=== PATIENT | female | born 1980 | race Caucasian/White ===

== ENCOUNTER → 2016-06-18 | Outpatient (CLI) | payer BC | LOC: GMA 14:21 | PROVIDERS: ATTEND Nurse Practitioner Family | DX: N39.0 Urinary tract infection, site not specified (principal) ==

== ENCOUNTER → 2018-08-11 | Outpatient (CLI) | payer BC ==
--- NOTE | 2018-08-12 09:41 | US ---
EXAM DESCRIPTION: Pelvis Transvaginal: Ultrasound. CLINICAL HISTORY: 37 years Female R19.09 COMPARISON: Ultrasound pelvis 04/03/2009. TECHNIQUE: Transpelvic scanning through the urine filled bladder; endovaginal scanning: Jackson-scale and Doppler modes. FINDINGS: Uterus 7.5 x 3.9 x 3.4 cm 49.9 ml. Endometrial thickness is 2.7 mm. Myometrium appears heterogeneous. Uterus retroflexed. Cervix unremarkable. Cul-de-sac contains no fluid. Right ovary 3.1 x 1.6 x 1.1 cm 2.9 mL.. Normal waveform and color Doppler vascularity. No follicles or cysts. No adnexal mass or free fluid. Left ovary 2.8 x 1.1 x 1.0 cm 1.7 mL.. Normal waveform and color Doppler vascularity. No follicles or cysts. No adnexal mass or free fluid. IMPRESSION: 1. Uterus normal position and size. No endometrial thickening. No fluid in the cul-de-sac. 2. Bilateral ovaries normal size and vascularity with no adnexal mass or fluid. Electronically signed by: Karson Borja MD 08/12/2018 9:38 AM CDT
== END ==
LOC: US 09:25
PROVIDERS: ATTEND Physician Assistant
DX: R19.09 Other intra-abdominal and pelvic swelling, mass and lump (principal)

== ENCOUNTER → 2019-11-07 | Outpatient (CLI) | payer BC | LOC: GMAM 11:18 | PROVIDERS: ATTEND Family Medicine | DX: E03.9 Hypothyroidism, unspecified (principal); E78.2 Mixed hyperlipidemia ==

== ENCOUNTER → 2020-04-24 | Outpatient (CLI) | payer BC | LOC: GMAM 10:25 | PROVIDERS: ATTEND Family Medicine | DX: M25.50 Pain in unspecified joint (principal) ==

== ENCOUNTER 2020-06-08 11:21 | Emergency (ER) | payer BC ==
--- NOTE | 2020-06-08 11:57 | ED.PDOC ---
History of Present Illness - General Chief Complaint: Respiratory Problem Stated Complaint: shortness of breath Time Seen by Provider: 06/08/20 11:45 Source: patient Additional Information: The patient is a 39 year old with history significant for asthma and diabetes who presents to the ED with cough and shortness of breath. States that for the past week she has had difficulty with exertional dyspnea, cough and fevers. She tested positive at the clinic today and was noted to have oxygen saturation of 92% so she was given 4mg oral decadron and referred to the Emergency Department. No other complaints at this time. - History of Present Illness Allergies/Adverse Reactions: Allergies NO KNOWN ALLERGY Allergy (Verified 06/08/20 11:49) Home Medications: Ambulatory Orders Azithromycin Tab [Zithromax Tab] 250 mg PO DAILY #6 tab 06/08/20 Benzonatate Perles [Tessalon Perles] 100 mg PO TID #20 cap 06/08/20 Dextromethorphan-Guaifenesin [Guaifenesin Dm] 10 ml PO Q4HR #120 syp 06/08/20 Metformin HCl 06/08/20 Singulair 06/08/20 Zyrtec 06/08/20 predniSONE 40 mg PO DAILY #14 tab 06/08/20 Review of Systems - Review of Systems Constitutional: States: chills, fever EENTM: States: no symptoms reported Respiratory: States: cough, short of breath, wheezing Cardiology: States: chest pain. Denies: edema, palpitations Gastrointestinal/Abdominal: Denies: abdominal pain, diarrhea, nausea, vomiting Genitourinary: States: no symptoms reported, dysuria Musculoskeletal: States: no symptoms reported Skin: States: no symptoms reported Neurological: States: no symptoms reported Endocrine: States: no symptoms reported Hematologic/Lymphatic: States: no symptoms reported All other Systems: Reviewed and Negative Past Medical History (General) - Patient Medical History Hx Stroke: No Hx Asthma: Yes Hx Congestive Heart Failure: No Hx Diabetes: Yes Surgical History: no surgical history - Vaccination History Hx Influenza Vaccination: No - Social History Hx Tobacco Use: No - Female History Patient is a Female of Child Bearing Age (10 -59 yrs old): Yes Family Medical History - Family History Mother Family History: Unknown Living Status: Unknown Physical Exam - Physical Exam General Appearance: Anxious, Ill Appearing ENT Exam: normal ENT inspection Neck: non-tender, full range of motion, supple, normal inspection, trachea midline Respiratory: chest non-tender, other - tachypneic Cardiovascular/Chest: normal peripheral pulses, no edema, no gallop, no JVD, no murmur, tachycardia Gastrointestinal/Abdominal: non tender, soft Extremity: normal range of motion, non-tender, normal inspection, no pedal edema Neurologic: no motor/sensory deficits, alert, normal mood/affect, oriented x 3 Skin Exam: normal color, warm/dry Progress - Progress Progress: 06/08/20 14:19 Patient reassessed, workup as above. She has borderline oxygen levels at 92% without increased work of breathing. Will treat with steroids, antibiotics. Discussed home symptomatic management and she will follow up with her PCP. Discussed CT findings, will follow up as outpatient for dedicated imaging. Return to the Emergency Department as needed. - Results/Orders Results/Orders: 06/08/20 11:45 Pulse Ox, Continuous Monitoring STAT Laboratory Results - last 24 hr 06/08/20 06/08/20 06/08/20 12:00 12:00 12:00 WBC 4.9 RBC 4.82 Hgb 13.9 Hct 41.3 MCV 85.6 MCH 28.8 MCHC 33.6 RDW 13.6 Plt Count 274 MPV 7.5 Absolute Neuts (auto) 4.20 Absolute Lymphs (auto) 0.60 L Absolute Monos (auto) 0.10 L Absolute Eos (auto) 0.00 Absolute Basos (auto) 0.00 Neutrophils % 85.7 H Lymphocytes % 11.6 L Monocytes % 2.3 Eosinophils % 0.1 L Basophils % 0.3 PTT (SP) 28.3 D-Dimer, Quantitative 441.0 H LD Total Creatine Kinase Troponin I < 0.02 C-Reactive Protein B-Natriuretic Peptide Serum HCG, Qual 06/08/20 06/08/20 12:00 12:07 WBC RBC Hgb Hct MCV MCH MCHC RDW Plt Count MPV Absolute Neuts (auto) Absolute Lymphs (auto) Absolute Monos (auto) Absolute Eos (auto) Absolute Basos (auto) Neutrophils % Lymphocytes % Monocytes % Eosinophils % Basophils % PTT (SP) D-Dimer, Quantitative LD Total 185 H Creatine Kinase 36 Troponin I C-Reactive Protein 7.8 H B-Natriuretic Peptide < 15.0 Serum HCG, Qual Negative CTA Chest: IMPRESSION: No pulmonary embolus. Bilateral pneumonia. COVID-19 could have this appearance. Geographic fatty infiltration of the liver with a partially visualized 4.8 cm solid mass in the right hepatic lobe. Neoplasm not excluded, given patient's age benign etiology is considered more likely such as adenoma or FNH. Hepatic protocol CT or MRI with multiphase gadolinium contrast should be considered for further evaluation, this is not emergent. Medical Decision Making Patient with URI symptoms and COVID+ referred from clinic. Evaluation as above. She has pneumonia without evidence of blood clots. Oxygen is borderline at 90- 92%. Given history of asthma, started on steroids and antibiotics. Discussed home symptomatic management including alternating doses of tylenol and motrin. Discussed Liver findings on CT scan, she will follow up with her PCP for dedicated imaging. Home care instructions and return indications reviewed. Departure - Departure Clinical Impression: COVID-19 Time of Disposition: 14:20 Disposition: Discharge to Home or Self Care Condition: Good Departure Forms: ED Discharge - Pt. Copy, Patient Portal Self Enrollment Instructions: Community-Acquired Pneumonia, Adult (DC) Diet: resume usual diet, other Activity: increase activity as tolerated Referrals: Kade Herrmann MD [Primary Care Provider] - 1-2 Weeks Prescriptions: Dextromethorphan-Guaifenesin [Guaifenesin Dm] 10 ml PO Q4HR #120 syp predniSONE 40 mg PO DAILY #14 tab Benzonatate Perles [Tessalon Perles] 100 mg PO TID #20 cap Azithromycin Tab [Zithromax Tab] 250 mg PO DAILY #6 tab Home Medications: Ambulatory Orders Azithromycin Tab [Zithromax Tab] 250 mg PO DAILY #6 tab 06/08/20 Benzonatate Perles [Tessalon Perles] 100 mg PO TID #20 cap 06/08/20 Dextromethorphan-Guaifenesin [Guaifenesin Dm] 10 ml PO Q4HR #120 syp 06/08/20 Metformin HCl 06/08/20 Singulair 06/08/20 Zyrtec 06/08/20 predniSONE 40 mg PO DAILY #14 tab 06/08/20
--- NOTE | 2020-06-08 12:29 | RAD ---
EXAMINATION: Chest x-ray one view. INDICATION: Shortness of breath. Covid COMPARISON: None TECHNIQUE: Frontal radiograph chest. FINDINGS: The cardiac silhouette is normal in size. Airspace opacities are present in the upper lung zones as well as the left midlung zone. Findings are suspicious for infectious process. There is no pneumothorax. IMPRESSION: Airspace opacities in both lungs, worse on the left. Findings are suspicious for provided history of Covid Electronically signed by: Sourav Josue MD 06/08/2020 12:27 PM [facility]
--- NOTE | 2020-06-08 13:50 | CT ---
EXAM DESCRIPTION: CTA Chest CLINICAL HISTORY: COVID+, elevated d-dimer, concern for PE COMPARISON: None available TECHNIQUE: Chest CTA was performed with IV contrast including MIP and/or Three-D reconstructed images. This exam was performed according to our departmental dose-optimization program, which includes automated exposure control, adjustment of the mA and/or kV according to patient size and/or use of iterative reconstruction technique. FINDINGS: Limited sensitivity for detection of peripheral pulmonary embolus due to delayed timing of imaging relative to contrast bolus administration, no central pulmonary was. No pleural or pericardial effusion. No thoracic aortic aneurysm or dissection. No adenopathy. Soft tissue density in the anterior mediastinum likely represents residual thymus. Central airways are clear. Irregular areas of groundglass and more confluent density scattered throughout both lungs, most apparent in the upper lobes. Geographic fatty infiltration of the liver. Partially visualized round 4.8 cm mass in the right hepatic lobe. Visualized portions of the upper abdomen are otherwise unremarkable. No fracture or pneumothorax. IMPRESSION: No pulmonary embolus. Bilateral pneumonia. COVID-19 could have this appearance. Geographic fatty infiltration of the liver with a partially visualized 4.8 cm solid mass in the right hepatic lobe. Neoplasm not excluded, given patient's age benign etiology is considered more likely such as adenoma or FNH. Hepatic protocol CT or MRI with multiphase gadolinium contrast should be considered for further evaluation, this is not emergent. Electronically signed by: Sami Parra MD 06/08/2020 1:49 PM [employer]
[2020-06-08 14:58] VITALS: BP 152/101; TEMP 98.5; O2SAT 92
== END 2020-06-08 14:53 | disposition home or self-care (01) ==
LOC: ER 11:21
DX: U07.1 COVID-19 (principal); J45.909 Unspecified asthma, uncomplicated; E11.9 Type 2 diabetes mellitus without complications; Z79.899 Other long term (current) drug therapy

== ENCOUNTER 2020-06-11 15:10 | Observation (INO) | payer BC ==
--- NOTE | 2020-06-11 15:48 | RAD ---
EXAM DESCRIPTION: Chest,1 View CLINICAL HISTORY: COVID COMPARISON: Chest radiograph and chest CT dated June 08, 2020 TECHNIQUE: One view radiograph of the chest FINDINGS: Cardiac silhouette shows normal heart size. Pulmonary vascularity is within normal limits. Essentially complete resolution of alveolar opacities in the bilateral upper lung lobes. Question of subtle residual hazy opacity in the left lower lobe. No significant pleural effusion. No pneumothorax. No acute osseous abnormality. IMPRESSION: Essentially complete resolution of alveolar opacities in the upper lung lobes with subtle residual hazy opacity in the left lower lobe compared to June 08, 2020. Electronically signed by: Teofilo Almeida MD 06/11/2020 3:46 PM [employer]
--- NOTE | 2020-06-11 16:05 | ED.PDOC ---
History of Present Illness - General Time Seen by Provider: 06/11/20 15:14 Source: patient - History of Present Illness Comments: COUGH, SOB, PERIORAL NUMBNESS, FEVER X 10 DAYS, POSITIVE COVID TEST 3 DAYS AGO, STARTED ON ZITHROMAX AND PREDNISONE THEN. PMHX OF DM, ASTHMA. LMP 1 WEEK AGO, NORMAL, STATES NO CHANCE OF BEING . Cough Quality/Degree: no cough Possible Cause: no prior episodes Improving Factors: nothing Worsening Factors: nothing Associated Symptoms: denies symptoms Allergies/Adverse Reactions: Allergies NO KNOWN ALLERGY Allergy (Verified 06/11/20 19:49) Home Medications: Ambulatory Orders Azithromycin Tab [Zithromax Tab] 250 mg PO DAILY #6 tab 06/08/20 Benzonatate Perles [Tessalon Perles] 100 mg PO TID #20 cap 06/08/20 Dextromethorphan-Guaifenesin [Guaifenesin Dm] 10 ml PO Q4HR #120 syp 06/08/20 Metformin HCl 06/08/20 Singulair 06/08/20 Zyrtec 06/08/20 predniSONE 40 mg PO DAILY #14 tab 06/08/20 Review of Systems - Review of Systems Constitutional: States: see HPI EENTM: States: see HPI Respiratory: States: see HPI Cardiology: States: chest pain Gastrointestinal/Abdominal: States: no symptoms reported Genitourinary: States: no symptoms reported Musculoskeletal: States: muscle pain, muscle stiffness Skin: States: no symptoms reported Neurological: States: no symptoms reported Endocrine: States: no symptoms reported Past Medical History (General) - Patient Medical History Hx Stroke: No Hx Asthma: Yes Hx Congestive Heart Failure: No Hx Diabetes: Yes - Vaccination History Hx Influenza Vaccination: No - Social History Hx Tobacco Use: No Family Medical History - Family History Mother Family History: Unknown Living Status: Unknown Physical Exam - Physical Exam General Appearance: Alert, Anxious, Well Developed, Well Groomed, Well Nourished ENT Exam: normal ENT inspection, hearing grossly normal, TMs normal, pharynx normal, nasal congestion Neck: non-tender, full range of motion, supple, normal inspection Respiratory: chest non-tender, lungs clear, normal breath sounds, no respiratory distress Cardiovascular/Chest: normal peripheral pulses, regular rate, rhythm, no edema, no gallop Gastrointestinal/Abdominal: normal bowel sounds, non tender, soft, no organomegaly Extremity: normal range of motion, non-tender, normal inspection Neurologic: no motor/sensory deficits, alert, normal mood/affect, oriented x 3 Skin Exam: normal color, warm/dry Lymphatic: no adenopathy Progress - Progress Progress: 06/11/20 20:28 PATIENT OFFERED MONOCLONAL AB AND DISCHARGE HOME IF SHE WOULD LIKE, SHE INSIST SHE WOULD LIKE TO STAY IN THE HOSPITAL DR HUMPHREYS TOLD HER SHE WOULD BE ADMITTED. HOSPITALIST SERVICE CONSULTED TO EVALUATE FOR ADMISSION. Departure - Departure Clinical Impression: Pneumonia due to COVID-19 virus Time of Disposition: 18:00 Disposition: Admit Patient Condition: Good Home Medications: Ambulatory Orders Azithromycin Tab [Zithromax Tab] 250 mg PO DAILY #6 tab 06/08/20 Benzonatate Perles [Tessalon Perles] 100 mg PO TID #20 cap 06/08/20 Dextromethorphan-Guaifenesin [Guaifenesin Dm] 10 ml PO Q4HR #120 syp 06/08/20 Metformin HCl 06/08/20 Singulair 06/08/20 Zyrtec 06/08/20 predniSONE 40 mg PO DAILY #14 tab 06/08/20
[2020-06-11] MEDS ORDERED: SODIUM CHLORIDE 0.9% (FLUSH) 10 ML SYG IV PRN (18:45)
[2020-06-11] MEDS ORDERED: REMDESIVIR 200 MG in SODIUM CHLORIDE 0.9% 250ML 250 ML IVPB ONE (18:51)
[2020-06-11] MEDS ORDERED: AZITHROMYCIN IV 500 MG in SODIUM CHLORIDE 0.9% 250ML 250 ML IVPB ONE (18:51)
[2020-06-11] MEDS ORDERED: GLUCAGON INJ 1 MG VIAL SUBCU PRN (18:53)
[2020-06-11] MEDS ORDERED: DEXTROSE 50% 25 GM/50 ML SYG IV PRN (18:53)
[2020-06-11] MEDS ORDERED: cefTRIAXone SODIUM 1 GM VIAL ONE (18:57)
[2020-06-11] MEDS ORDERED: SODIUM CHL 0.9% 50ML MIN-BAG+ 50 ML IVPB ONE (18:57)
[2020-06-11] MEDS ORDERED: DEXAMETHASONE INJ 4 MG/ML VIAL IV SCH (19:00)
[2020-06-11] MEDS ORDERED: ENOXAPARIN SODIUM 40 MG/0.4 ML SYG SUBCU SCH (19:00)
[2020-06-11] MEDS ORDERED: IV SET AND CAP CHANGE INJ INJ SCH (19:00)
[2020-06-11] MEDS ORDERED: cefTRIAXone SODIUM 1 GM in SODIUM CHL 0.9% 50ML MIN-BAG+ 50 ML IVPB SCH (19:00)
--- NOTE | 2020-06-11 19:10 | HP ---
SUPERVISING PHYSICIAN: Kade Herrmann M.D. CHIEF COMPLAINT: Shortness of breath and fever. HISTORY OF PRESENT ILLNESS: This is a 39 year-old female with a history of asthma who has had symptoms of cough, shortness of breath and fever for the last 10 days or so, but was actually diagnosed with COVID on Wednesday. At that time she was seen in the Emergency Room and had documented O2 saturations of 90 to 92% but was sent home with prednisone and Zithromax. She failed to improved. She notified her physician yesterday and felt pretty bad. Today, she notified her physician and actually stated she felt a little bit better, but at the drive-through clinic her O2 saturations were low, around 90-92%, so she was referred to the Emergency Room. Her primary care physician requested admission. In the Emergency Room, her saturations were actually 94 to 95% and once again she did state she felt a little bit better, but she still felt bad and was afraid if she went home she would have to come back if she got worse. Monoclonal antibiotic therapy was offered. I did discuss with the patient admission. She requested to be admitted for Remdesivir therapy. The patient does have a history of asthma. PAST MEDICAL HISTORY: 1. Asthma. 2. Diabetes. PAST SURGICAL HISTORY: CURRENT MEDICATIONS: Please see Med. Rec. list once they are verified in the computer. ALLERGIES: NO KNOWN DRUG ALLERGIES. FAMILY HISTORY: Noncontributory. SOCIAL HISTORY: Nonsmoker, nondrinker. No illicit drugs. REVIEW OF SYSTEMS: CONSTITUTIONAL: Positive for fever, chills and fatigue. No recent weight loss or weight gain. HEENT: Positive for headaches. No vision changes, ear pain, nasal congestion or throat pain. RESPIRATORY: Positive for shortness of breath and cough. No pleuritic chest pain or hemoptysis. CARDIOVASCULAR: No chest pain, palpitations or peripheral edema. GASTROINTESTINAL: No nausea, vomiting, diarrhea, constipation or abdominal pain. GENITOURINARY: No dysuria, frequency or flank pain. ENDOCRINE: No polydipsia, polyuria or polyphagia. No heat or cold intolerance. HEMATOLOGIC: No easy bruising and no transfusion reaction. NEUROLOGIC: No syncope, paresthesias or seizures. PHYSICAL EXAMINATION: VITAL SIGNS: Blood pressure 141/100, heart rate 73, respiratory rate 16, temperature 98.6, oxygen saturation 95%. GENERAL: Ms. Verde is a 79 year-old female in no active distress currently. NEUROLOGIC: The patient is alert. LUNGS: With a little bit diminished bases, otherwise clear to auscultation bilaterally. CARDIOVASCULAR: Regular rate and rhythm. Normal S1, S2. ABDOMEN: Soft. Positive bowel sounds. EXTREMITIES: Lower extremities with no edema, 2+ pulses. Capillary refill is less than 2 seconds. Chest x-ray shows complete resolution of alveolar opacities in the upper lung kemp, but there is residual haziness in the left lower lobe. White count is normal. Slightly elevated platelet count at 403. Coagulation studies are normal. D-dimer is 262. Chemistry shows an elevated glucose of 241, CRP is 4.4, troponin is negative. ASSESSMENT: 1. COVID pneumonitis. 2. Asthma with no acute exacerbation. 3. Diabetes mellitus type 2. PLAN: The patient will be admitted to and placed on Remdesivir, Dexamethasone, and empiric antibiotic therapy. I also am going to place her on scheduled bronchodilator therapy, Mucinex and bronchial hygiene. Will place her on incentive spirometry. Will start home medications once they are verified in the computer. We will do serial labs as needed as well as chest x-rays. If she remains stable over the next 24 to 48 hours, she can probably be discharged home. [id number] [facility]
[2020-06-11] MEDS ORDERED: AZITHROMYCIN IV 500 MG VIAL IVPB ONE (19:36)
[2020-06-11] MEDS ORDERED: SODIUM CHLORIDE 0.9% 250ML 250 ML ONE ×2 (19:37→21:17)
[2020-06-11] MEDS ORDERED: REMDESIVIR IV 100 MG VIAL ONE (21:17)
[2020-06-11] MEDS: ALBUTEROL INHALER 64 PUFF/8GM INH SCH (22:30)
[2020-06-11] MEDS: INSULIN LISPRO 100 UNITS/ML PEN SUBCU SCH (22:31)
--- NOTE | 2020-06-12 07:13 | RAD ---
EXAM: XR Chest, 1 View CLINICAL HISTORY: covid-19 TECHNIQUE: Frontal view of the chest. COMPARISON: 06/11/2020 FINDINGS: Lungs: Stable mild groundglass infiltrate within the right base. Pleural space: No pneumothorax. No pleural effusion. Heart: Normal cardiac size and configuration. Mediastinum: No abnormality noted. Bones/joints: No osseous destruction or sclerosis noted. IMPRESSION: Stable abnormalities as above. Electronically signed by: Marie Bee MD 06/12/2020 7:11 AM TONGUE TRIMMER
[2020-06-12] MEDS: ALBUTEROL INHALER 64 PUFF/8GM INH SCH (09:25)
[2020-06-12] MEDS: INSULIN LISPRO 100 UNITS/ML PEN SUBCU SCH (09:28)
[2020-06-12] MEDS ORDERED: LISINOPRIL 5 MG TAB PO SCH (10:00)
[2020-06-12 10:27] VITALS: O2SAT 95
[2020-06-12 12:06] VITALS: BP 146/102; TEMP 98
--- NOTE | 2020-06-12 13:18 | DS ---
SUPERVISING PHYSICIAN: Kade Herrmann MD DISCHARGE DIAGNOSIS: 1. COVID pneumonitis. 2. Asthma with no acute exacerbation. 3. Diabetes mellitus, type 2. HISTORY OF PRESENT ILLNESS: This is a 39-year-old female patient with a history of asthma who has had symptoms of cough, shortness of breath and fever for 10 days or so prior to coming to the Emergency Room. She was actually diagnosed with COVID on Wednesday. She was seen in the Emergency Room and had documented O2 saturations of 90 to 92%, but was sent home with prednisone and Zithromax. She failed to improve. She notified her physician yesterday and felt pretty bad. The day of admission, she notified her physician that she felt a little bit better, but at the drive-through clinic her O2 saturations were low, around 90 to 92%, so she was referred to the Emergency Room. Her primary care physician requested admission. In the Emergency Room, her saturations were actually 94 to 95% and she did feel some better from the previous day, but she was afraid if she went home, she would have to come back if she got worse. Monoclonal antibiotic therapy was offered, but the patient requested to be admitted for Remdesivir therapy. HOSPITAL COURSE: The patient received Remdesivir, dexamethasone and empiric antibiotic therapy. She was also given aggressive pulmonary hygiene. She was put on sliding scale insulin per protocol. Her home medications were restarted. Serial labs were ordered. She has improved to the point today where she can be discharged home. Her O2 saturations have been 95% on room air. With exertion, they are 93%. LABORATORY: WBCs 7.8, hemoglobin 12.3, hematocrit 36.7. D-dimer is 149. Chemistry are within normal limits with the of her calcium slightly low at 8.3. Blood sugars are slightly high at 165. C-reactive protein is 2.6. Urinalysis is unremarkable. RADIOLOGY: Chest x-ray shows stable mild ground glass infiltrate within the right lung base. All other labs and films have been reviewed via the EMR. DISCHARGE PLAN: The patient will be discharged home in stable condition. She did have a slightly elevated blood pressure during her stay, so lisinopril has been added to her regimen. She will get a prescription for that as well as dexamethasone, cefdinir and azithromycin. She will need to get a followup with Dr. Herrmann within the next week. At that time, he can continue the lisinopril. She is to return to the hospital or followup with Dr. Herrmann for any problems or complications. DISCHARGE MEDICATIONS: 1. Tessalon Perles. 2. Estradiol. 3. Metformin. 4. Cetirizine. 5. Singulair. 6. Omeprazole. 7. Multivitamin. 8. Align. 9. Dexamethasone. 10. Guaifenesin. 11. Cefdinir. 12. Lisinopril. 13. Albuterol. 14. Azithromycin. [facility][id number] [facility]
[2020-06-12] MEDS ORDERED: BENZONATATE PERLES 100 MG CAP PO SCH (15:00)
[2020-06-12] MEDS ORDERED: guaiFENesin ER TAB 600 MG TAB PO SCH (21:00)
[2020-06-12] MEDS ORDERED: MONTELUKAST 10 MG TAB PO SCH (21:00)
[2020-06-12] MEDS ORDERED: BIFIDOBACTERIUM INFANTIS 4 MG CAP PO SCH (21:00)
[2020-06-12] MEDS ORDERED: metFORMIN HCL 500 MG TAB PO SCH (21:00)
[2020-06-12] MEDS ORDERED: CETIRIZINE HCL 10 MG TAB PO SCH (21:00)
[2020-06-12] MEDS ORDERED: NON-FORMULARY MEDICATION 1 EA MIS (Metformin Hcl [Fortamet] 500 MG) PO SCH (21:00)
[2020-06-13] MEDS ORDERED: PANTOPRAZOLE SODIUM IV 40 MG VIAL IV SCH (06:30)
== END 2020-06-12 13:25 | disposition home or self-care (01) ==
LOC: ER 15:10 → MS 15:11 → UNDOADMOB 19:09 → MS 19:09 → UNDODISOB 06-12 13:25
PROVIDERS: ADMIT Nurse Practitioner; ATTEND Nurse Practitioner Acute Care
DX: U07.1 COVID-19 (principal); J12.82 Pneumonia due to coronavirus disease 2019; J45.20 Mild intermittent asthma, uncomplicated; E11.65 Type 2 diabetes mellitus with hyperglycemia; E03.9 Hypothyroidism, unspecified; E78.2 Mixed hyperlipidemia; Z79.84 Long term (current) use of oral hypoglycemic drugs; Z79.3 Long term (current) use of hormonal contraceptives; Z79.899 Other long term (current) drug therapy
CPT/HCPCS: 96366; 96367; 96365; 96375; 96372 ×2; J0696; J1100; J7050 ×3; J1650; J0456; J1815; 85379 ×2; 80053 ×2; 82948 ×3; 81025; 36415 ×2; 81001; 86140 ×2; 85025 ×2; 83735; 85730; 85610; 84484; 36416 ×2; 71045 ×2; 94664; 94640; 94762; 99285; 93005; G0378